=== PATIENT | male | born 1975 | race Caucasian/White ===

== ENCOUNTER 2018-10-17 19:00 | Emergency (ER) | payer BC ==
--- NOTE | 2018-10-17 19:09 | EDM.PDOC ---
ED HPI GENERAL MEDICAL PROBLEM - General Chief Complaint: Skin Complaint Stated Complaint: PT HAS LUMP ON GROIN Time Seen by Provider: 10/17/18 19:09 Source of Information: Reports: Patient History Limitations: Reports: No Limitations - History of Present Illness INITIAL COMMENTS - FREE TEXT/NARRATIVE: HISTORY AND PHYSICAL: History of present illness: Patient is a 43-year-old male here with complaint of cyst on his bottom. He states it started around 5 months ago, he was able to drain it at one point and had a thick yellow discharge. Since then it has gotten bigger and more painful but he has not pain able to drain anything from it. He denies fevers, chills, nausea, vomiting, abdominal pain. Denies significant past medical history. Review of systems: As per history of present illness and below otherwise all systems reviewed and negative. Past medical history: As per history of present illness and as reviewed below otherwise noncontributory. Surgical history: As per history of present illness and as reviewed below otherwise noncontributory. Social history: No reported history of drug or alcohol abuse. Family history: As per history of present illness and as reviewed below otherwise noncontributory. Physical exam: General: Patient sitting comfortably in no acute distress and nontoxic appearing HEENT: Atraumatic, normocephalic, pupils reactive, negative for conjunctival pallor or scleral icterus, mucous membranes moist, throat clear, neck supple, nontender, trachea midline. No meningeal signs. Lungs: Clear to auscultation, breath sounds equal bilaterally, chest nontender. Heart: S1S2, regular, negative for clicks, rubs, or overt murmur. Abdomen: Soft, nondistended, nontender. Negative for masses or hepatosplenomegaly. Negative for costovertebral tenderness. Pelvis: Stable nontender. Genitourinary: Deferred. Rectal: There is an area of induration and slight erythema that is tender to palpation in the perineum approximately 2 cm from the anus. Extremities: Atraumatic, negative for cords or calf pain. Neurovascular unremarkable. Neuro: Awake, alert, oriented. Cranial nerves II through XII unremarkable. Cerebellum unremarkable. Motor and sensory unremarkable throughout. Exam nonfocal. Notes: Discussed with Dr. Dumas, he will see patient in the clinic tomorrow morning. Diagnostics: CT abdomen/pelvis w contrast Therapeutics: None Prescriptions: Clindamycin Impression: Perineal abscess Plan: 1. Take antibiotic as instructed 2. Follow up with Dr. Dumas in general surgery tomorrow. Please call the number provided tomorrow morning to schedule an appointment 3. Return to ED as needed as discussed Definitive disposition and diagnosis as appropriate pending reevaluation and review of above. Buttock Pain Score (Numeric/FACES): 8 - Related Data Allergies Allergy/AdvReac Type Severity Reaction Status Date / Time No Known Allergies Allergy Verified 10/17/18 19:10 Home Meds: Home Meds . [No Known Home Meds] 10/17/18 [History] ED ROS GENERAL - Review of Systems Review Of Systems: ROS reveals no pertinent complaints other than HPI. ED EXAM, SKIN/RASH Exam: See Below (see dictation) Course - Vital Signs Last Recorded V/S: Last Vital Signs Temp 97.4 F 10/17/18 19:11 Pulse 63 10/17/18 20:03 Resp 16 10/17/18 20:03 BP 118/79 10/17/18 20:03 Pulse Ox 94 L 10/17/18 20:03 - Orders/Labs/Meds Labs: Laboratory Tests 10/17/18 10/17/18 10/17/18 Range/Units 19:20 19:35 19:35 WBC 12.48 H (4.0-11.0) K/uL RBC 5.12 (4.50-5.90) M/uL Hgb 17.0 (13.0-17.0) g/dL Hct 47.4 (38.0-50.0) % MCV 92.6 (80.0-98.0) fL MCH 33.2 H (27.0-32.0) pg MCHC 35.9 (31.0-37.0) g/dL RDW Std Deviation 44.2 (28.0-62.0) fl RDW Coeff of Pepe 13 (11.0-15.0) % Plt Count 223 (150-400) K/uL MPV 9.60 (7.40-12.00) fL Neut % (Auto) 70.5 (48.0-80.0) % Lymph % (Auto) 17.1 (16.0-40.0) % Boyd % (Auto) 8.7 (0.0-15.0) % Eos % (Auto) 3.4 (0.0-7.0) % Baso % (Auto) 0.3 (0.0-1.5) % Neut # (Auto) 8.8 H (1.4-5.7) K/uL Lymph # (Auto) 2.1 (0.6-2.4) K/uL Boyd # (Auto) 1.1 H (0.0-0.8) K/uL Eos # (Auto) 0.4 (0.0-0.7) K/uL Baso # (Auto) 0.0 (0.0-0.1) K/uL Nucleated RBC % 0.0 /100WBC Nucleated RBCs # 0 K/uL Sodium 137 (136-148) mmol/L Potassium 3.5 (3.5-5.1) mmol/L Chloride 102 (98-107) mmol/L Carbon Dioxide 27.7 (21.0-32.0) mmol/L BUN 13 (7.0-18.0) mg/dL Creatinine 1.2 (0.8-1.3) mg/dL Est Cr Clr Drug Dosing 92.91 mL/min Estimated GFR (MDRD) > 60.0 ml/min Glucose 76 (74-106) mg/dL Calcium 9.3 (8.5-10.1) mg/dL Total Bilirubin 0.5 (0.2-1.0) mg/dL AST 18 (15-37) IU/L ALT 24 (14-63) IU/L Alkaline Phosphatase 123 H (46-116) U/L Total Protein 7.2 (6.4-8.2) g/dL Albumin 3.6 (3.4-5.0) g/dL Globulin 3.6 (2.6-4.0) g/dL Albumin/Globulin Ratio 1.0 (0.9-1.6) Urine Color YELLOW Urine Appearance CLEAR Urine pH 5.5 (5.0-8.0) Ur Specific [place] <= 1.005 (1.001-1.035) Urine Protein NEGATIVE (NEGATIVE) mg/dL Urine Glucose (UA) NEGATIVE (NEGATIVE) mg/dL Urine Ketones NEGATIVE (NEGATIVE) mg/dL Urine Occult Blood NEGATIVE (NEGATIVE) Urine Nitrite NEGATIVE (NEGATIVE) Urine Bilirubin NEGATIVE (NEGATIVE) Urine Urobilinogen 0.2 (<2.0) EU/dL Ur Leukocyte Esterase NEGATIVE (NEGATIVE) Meds: Medications Discontinued Medications Generic Name Dose Route Start Last Admin Trade Name [place] PRN Reason Stop Dose Admin Lidocaine HCl Confirm 10/17/18 19:28 10/17/18 19:45 Xylocaine-Mpf 1% Administered 10/17/18 19:29 Not Given Dose 5 mls @ as directed .ROUTE .STK-MED ONE Iopamidol 100 ml 10/17/18 20:45 10/17/18 20:46 Isovue-370 (76%) IVPUSH 10/17/18 20:46 100 ml ONETIME ONE Administration Departure - Departure Time of Disposition: 21:22 Disposition: Home, Self-Care 01 Condition: Good Clinical Impression: Perineal abscess - Discharge Information Referrals: PCP,None [Primary Care Provider] - Forms: ED Department Discharge Additional Instructions: The following information is given to patients seen in the emergency department who are being discharged to home. This information is to outline your options for follow-up care. We provide all patients seen in our emergency department with a follow-up referral. The need for follow-up, as well as the timing and circumstances, are variable depending upon the specifics of your emergency department visit. If you don't have a primary care physician on staff, we will provide you with a referral. We always advise you to contact your personal physician following an emergency department visit to inform them of the circumstance of the visit and for follow-up with them and/or the need for any referrals to a consulting specialist. The emergency department will also refer you to a specialist when appropriate. This referral assures that you have the opportunity for follow-up care with a specialist. All of these measure are taken in an effort to provide you with optimal care, which includes your follow-up. Under all circumstances we always encourage you to contact your private physician who remains a resource for coordinating your care. When calling for follow-up care, please make the office aware that this follow-up is from your recent emergency room visit. If for any reason you are refused follow-up, please contact the [facility] Emergency Department at and asked to speak to the emergency department charge nurse. [facility] - General Surgery Professional [address], [address] [place] [address] 1. Take antibiotic as instructed 2. Follow up with Dr. Dumas in general surgery tomorrow. Please call the number provided tomorrow morning to schedule an appointment 3. Return to ED as needed as discussed
[2018-10-17] MEDS ORDERED: Lidocaine 1% 0 ML ONE (19:28)
[2018-10-17 20:07] LABS: CHLORIDE,CL 102 mmol/L (98-107); SODIUM,NA 137 mmol/L (136-148)
[2018-10-17] MEDS ORDERED: Iopamidol 755 Mg/ML 100 ML Bottle IVPUSH ONE (20:45)
--- NOTE | 2018-10-17 21:06 | CT ---
Indication: Perineal swelling and pain Technique: A pelvic CT with intravenous contrast. 100 mL of Isovue 370 administered. Comparison: None available Findings: There is a 2.9 x 1.0 x 1.9 cm ovoid peripherally enhancing collection in the posterior perineal region, at the inferomedial right gluteal margin, consistent with an abscess. The prostate is upper limits of normal in size. No discrete bladder abnormality is seen. The visualized portions of the gastrointestinal tract are within normal limits. A normal appendix is seen. There is no free fluid or free air within the pelvis. Mild atherosclerotic changes are noted. No abnormally enlarged lymph nodes are seen. There is a sclerotic focus in the left iliac bone, nonspecific. There are mild degenerative changes in the hips. Impression: A 2.9 cm perineal abscess. Dictated by Greg Guzmán MD @ 10/17/2018 9:05:57 PM Please note that all CT scans at this facility use dose modulation, iterative reconstruction, and/or weight-based dosing when appropriate to reduce radiation dose to as low as reasonably achievable. Dictated by: Greg Guzmán MD @ 10/17/2018 21:06:03 (Electronically Signed)
== END 2018-10-17 21:35 | disposition home or self-care (01) ==
LOC: MW.ED 19:00
DX: L02.215 Cutaneous abscess of perineum (principal)
CPT/HCPCS: 72193; 80053; 81003; 85025; 99284; Q9967

== ENCOUNTER 2018-10-19 12:49 | Day surgery (SDC) | payer BC ==
[~2018-10-19 12:49] MED LIST: Lactated Ringers 1,000 ML IV SCH
--- NOTE | 2018-10-19 13:33 | PCM.PREANE ---
Preanesthetic Assessment - Anesthesia/Transfusion/Family Hx Anesthesia History: Prior Anesthesia Without Reaction Family History of Anesthesia Reaction: No Transfusion History: No Prior Transfusion(s) Intubation History: Unknown - Review of Systems General: No Symptoms Pulmonary: No Symptoms Cardiovascular: No Symptoms Gastrointestinal: No Symptoms Neurological: No Symptoms Other: Reports: None - Physical Assessment O2 Sat by Pulse Oximetry: 97 Respiratory Rate: 20 Vital Signs: Last Vital Signs Temp 36.4 C 10/19/18 13:10 Pulse 78 10/19/18 13:10 Resp 20 10/19/18 13:10 BP 145/80 H 10/19/18 13:10 Pulse Ox 97 10/19/18 13:10 Height: 1.91 m Weight: 94.801 kg ASA Class: 2 Mental Status: Alert & Oriented x3 Airway Class: Mallampati = 2 Dentition: Reports: Normal Dentition, Missing Tooth/Teeth (multiple missing) Thyro-Mental Finger Breadths: 3 Mouth Opening Finger Breadths: 3 ROM/Head Extension: Limited/Partial Lungs: Clear to Auscultation, Normal Respiratory Effort Cardiovascular: Regular Rate, Regular Rhythm - Allergies Allergies/Adverse Reactions: Allergies Allergy/AdvReac Type Severity Reaction Status Date / Time No Known Allergies Allergy Verified 10/18/18 15:51 - Blood Blood Available: No - Anesthesia Plan Pre-Op Medication Ordered: None - Acknowledgements Anesthesia Type Planned: General Anesthesia Pt an Appropriate Candidate for the Planned Anesthesia: Yes Alternatives and Risks of Anesthesia Discussed w Pt/Guardian: Yes Pt/Guardian Understands and Agrees with Anesthesia Plan: Yes PreAnesthesia Questionnaire HEENT History: Reports: Other (See Below) Other HEENT History: wears glasses Cardiovascular History: Reports: None Respiratory History: Reports: None Other Respiratory History: has smoked 2 PPD for 35 years Gastrointestinal History: Reports: Other (See Below) (perianal abscess) Genitourinary History: Reports: None Musculoskeletal History: Reports: Fracture Other Musculoskeletal History: hx of fx finger Neurological History: Reports: Concussion Psychiatric History: Reports: None Endocrine/Metabolic History: Reports: None Hematologic History: Reports: None Immunologic History: Reports: None Oncologic (Cancer) History: Reports: None Dermatologic History: Reports: Other (See Below) Other Dermatologic History: acne - Infectious Disease History Infectious Disease History: Reports: Chicken Pox - Past Surgical History GI Surgical History: Reports: Cholecystectomy, Hernia, Inguinal (total of 3 surgeries) Neurological Surgical History: Reports: C-Spine, Spinal Fusion Other Neurological Surgeries/Procedures: no hardware - SUBSTANCE USE Smoking Status *Q: Current Every Day Smoker (> 1ppd) Tobacco Use Within Last Twelve Months: Cigarettes, Smokeless Tobacco Recreational Drug Use History: No - HOME MEDS Home Medications: Home Meds Clindamycin HCl 300 mg PO TID 10/18/18 [History] - CURRENT (IN HOUSE) MEDS Current Meds: Current Medications Lactated Ringer's (Ringers, Lactated) 1,000 mls @ 100 mls/hr IV ASDIRECTED PHAM Lactated Ringer's (Ringers, Lactated) 1,000 mls @ 125 mls/hr IV ASDIRECTED PHAM
[2018-10-19] MEDS ORDERED: Bupivacaine 0.25%/EPINEPHrine 1:200,000 10 ML SDV ONE (14:01)
[2018-10-19] MEDS ORDERED: Lidocaine 2% 5 ML SDV ONE (14:07)
[2018-10-19] MEDS ORDERED: fentaNYL 100 MCG/2 ML SDV ONE ×2 (14:08→14:48)
[2018-10-19] MEDS ORDERED: Midazolam 1 MG/ML 2 ML SDV ONE (14:08)
[2018-10-19] MEDS ORDERED: Propofol 200 MG/20 ML SDV ONE (14:08)
[2018-10-19] MEDS ORDERED: Naloxone 0.4 MG/ML Syringe IVPUSH PRN (14:57)
[2018-10-19] MEDS ORDERED: 50% Dextrose in Water 50 ML Syringe IVPUSH PRN (14:57)
[2018-10-19] MEDS ORDERED: EPINEPHrine 1:10,000 1 MG/10 ML Syringe IVPUSH PRN (14:57)
[2018-10-19] MEDS ORDERED: fentaNYL 100 MCG/2 ML SDV IVPUSH PRN (14:57)
[2018-10-19] MEDS ORDERED: Albuterol 0.083% 2.5 MG/3 ML Neb Soln NEB PRN (14:57)
[2018-10-19] MEDS ORDERED: Atropine 0.1 MG/ML 10 ML Syringe IVPUSH PRN ×2 (14:57)
--- NOTE | 2018-10-19 15:23 | PCM.OPNOTE ---
- General Post-Op/Procedure Note Date of Surgery/Procedure: 10/19/18 Operative Procedure(s): i/d and exploration recurrent perirectal abscess Findings: large amoout of purulent foul smelling pus; wound packed w 1/4 iodoform gauze; [id number] Pre Op Diagnosis: recurrent perirectal abscess Post-Op Diagnosis: Same Anesthesia Technique: Moderate Sedation Primary Surgeon: Buzz Dumas Complications: None Condition: Good
--- NOTE | 2018-10-19 15:54 | OR ---
SURGEON: Buzz Dumas MD DATE OF PROCEDURE: 10/19/2018 PREOPERATIVE DIAGNOSIS: Recurrent perirectal abscess. POSTOPERATIVE DIAGNOSIS: Recurrent perirectal abscess. PROCEDURE PERFORMED: Incision and drainage, exploration. COMPLICATION: None. FINDINGS: Large amount of foul-smelling purulent material, necrosis. The wound was packed. The patient is a 43-year-old gentleman, complained about 4 months history of on and off intermittent upper rectal abscess and the patient has been self mitigating by using a needle poked into the thing and resolved once and twice. Now presents for surgery. Of note, the area of purulent material is right in the perineal body and in the median raphae. PROCEDURE IN DETAIL: The patient was taken to operating room and placed in supine position. Upon induction of mild general sedation, the patient's perineum area prepped and draped in a sterile fashion. Local anesthetic was infiltrated and using an 11 blade, incision was made quite away from the median raphae and then encountered already large amount of purulent, foul-smelling material and was followed with extensive irrigation. The wound was packed with quarter-inch iodoform gauze and following appropriate dressing, the patient was awakened, transferred to recovery room in hemodynamically stable condition. The patient tolerated the procedure well, there were no intraoperative complications. Dr. Dumas was present through the whole procedure. Again, the incision is quite far away from median raphae and angle was the medial. Incision is superficial and is about 1.1 cm in size. DILCIA / ARNAUD /[id number]
--- NOTE | 2018-10-20 10:44 | PCM48HPAN ---
Post Anesthesia Note - EVALUATION WITHIN 48HRS OF ANESTHETIC Vital Signs in Normal Range: Yes Patient Participated in Evaluation: Yes Respiratory Function Stable: Yes Airway Patent: Yes Cardiovascular Function Stable: Yes Hydration Status Stable: Yes Pain Control Satisfactory: Yes Nausea and Vomiting Control Satisfactory: Yes Mental Status Recovered: Yes Resp Rate: 16
--- NOTE | 2018-10-20 10:44 | PCM.POSTAN ---
POST ANESTHESIA ASSESSMENT - MENTAL STATUS Mental Status: Alert, Oriented - RESPIRATORY Respiratory Status: Respiratory Rate WNL, Airway Patent, O2 Saturation Stable - CARDIOVASCULAR CV Status: Pulse Rate WNL, Blood Pressure Stable - GASTROINTESTINAL GI Status: No Symptoms - POST OP HYDRATION Hydration Status: Adequate & Stable
== END 2018-10-19 16:30 | disposition home or self-care (01) ==
LOC: MW.SDS 12:49
PROVIDERS: ATTEND Surgery
DX: K61.1 Rectal abscess (principal); F17.210 Nicotine dependence, cigarettes, uncomplicated
CPT/HCPCS: 46040; 87070; 87075; 87205; J2001; J2250; J2704; J3010; J3490; J7120; 00902

== ENCOUNTER 2024-01-22 10:30 | Emergency (ER) | payer BC ==
[2024-01-22] MEDS: Sodium Chloride 0.9% 1,000 ML IV ONE ×2 (11:22→13:21)
[2024-01-22] MEDS: Sodium Chloride 0.9% 10 ML Syringe FLUSH PRN (11:23)
[2024-01-22] MEDS: Sodium Chloride 0.9% 2.5 ML Syringe FLUSH PRN (11:23)
[2024-01-22 11:33] LABS: HEMATOCRIT 25.1 % (42.0-52.0); HEMOGLOBIN 8.8 g/dL (14.0-18.0); MEAN CORPUSCULAR HEMOGLOBIN 32.7 pg (28.0-32.0); MEAN CORPUSCULAR HGB CONC 35.1 g/dL (32.0-36.0); MEAN CORPUSCULAR VOLUME 93.3 fL (83.0-99.0); RED BLOOD CELL COUNT 2.69 M/uL (4.52-5.90)
[2024-01-22 11:42] LABS: WHITE BLOOD CELL COUNT,WBC 0.18 K/uL (3.9-11.3)
[2024-01-22 11:43] LABS: PLATELET COUNT,PLT 6 K/uL (150-400)
[2024-01-22] MEDS: Acetaminophen 1,000 MG in Premix Bag 1 BAG IV ONE (11:56)
[2024-01-22 12:17] LABS: LACTIC ACID 1.3 mmol/L (0.4-2.0)
[2024-01-22 12:24] LABS: A/G RATIO 0.8 (0.9-1.6); ALBUMIN 2.8 g/dL (3.4-5.0); CALCIUM 8.6 mg/dL (8.5-10.1); MAGNESIUM 1.5 mg/dL (1.8-2.4); POTASSIUM,K 4.1 mmol/L (3.5-5.1); PROTEIN TOTAL,TP 6.5 g/dL (6.4-8.2)
[2024-01-22] MEDS: Iopamidol 755 MG/ML 500 ML Multipack Bottle IVPUSH STA (12:30)
[2024-01-22] MEDS: Piperacillin/Tazobactam 4.5 GM in Sodium Chloride 0.9% 100 ML IV ONE (12:34)
[2024-01-22 12:45] LABS: BAND PERCENT MAN 2 %; BASOPHILS PERCENT MAN 2 % (0-1); EOSINOPHILS ABSOLUTE MAN 0.01 K/uL (0.00-0.45); EOSINOPHILS PERCENT MAN 6 % (0-6); LYMPHOCYTES ABSOLUTE MAN 0.06 K/uL (1.00-4.80); LYMPHOCYTES PERCENT MAN 32 % (24-44); MONOCYTES ABSOLUTE MAN 0.09 K/uL (0.00-0.80); MONOCYTES PERCENT MAN 50 % (0-8); PLATELET COUNT ESTIMATE MARKED DEC; SEG NEUTROPHILS ABSOLUTE MAN 0.01 K/uL (1.80-7.70); SEG NEUTROPHILS PERCENT MAN 8 % (41-71)
[2024-01-22] MEDS: diphenhydrAMINE 50 MG/ML SDV IVPUSH ONE (13:14)
[2024-01-22 14:12] LABS: CORONAVIRUS COVID-19 NAA NEGATIVE (NEGATIVE); INFLUENZA A NAA NEGATIVE (NEGATIVE); INFLUENZA B NAA NEGATIVE (NEGATIVE); RESPIRATORY SYNCYTIAL VIR NAA NEGATIVE (NEGATIVE)
== END 2024-01-22 15:50 ==
LOC: MW.ED 10:30
DX: J03.90 Acute tonsillitis, unspecified (principal); D70.9 Neutropenia, unspecified; R50.81 Fever presenting with conditions classified elsewhere; Z79.899 Other long term (current) drug therapy; Z90.49 Acquired absence of other specified parts of digestive tract; Z87.891 Personal history of nicotine dependence
CPT/HCPCS: 0241U; 36415; 70491; 71045; 80053; 83605; 83690; 83735; 85007; 85027; 87040; 87651; 96361; 96365; 96367; 96375; 99285; J0131; J1200; J2543; J3490; J7030; P9034; Q9967